=== PATIENT | female | born 1980 | race Caucasian/White ===

== ENCOUNTER 2016-09-01 07:32 | Emergency (ER) | payer BC ==
[~2016-09-01] VITALS: Ht 162.6 cm; Wt 96.6 kg
[~2016-09-01 07:32] MED LIST: PHENTERMINE HCL30 MG PO; PROZAC20 MG PO
[2016-09-01] MEDS ORDERED: LEVO-T125 MCG PO (08:21)
[2016-09-01] MEDS ORDERED: HYDROCHLOROTH12.5 M3 PO (08:22)
[2016-09-01] MEDS ORDERED: ZYRTEC10 M3 PO (08:22)
[2016-09-01 09:44] VITALS: BP 130/89
== END 2016-09-01 09:44 | disposition home or self-care (01) ==
LOC: EME 07:32
DX: S83.91XA Sprain of unspecified site of right knee, initial encounter (principal); W17.89XA Other fall from one level to another, initial encounter; Z88.6 Allergy status to analgesic agent
CPT/HCPCS: 73564; 99281; 99283

== ENCOUNTER 2016-09-05 10:28 | Emergency (ER) | payer BC ==
[~2016-09-05] VITALS: Ht 162.6 cm; Wt 97.6 kg
[~2016-09-05 10:28] MED LIST changes: +HYDROCHLOROTH12.5 M3 PO; +LEVO-T125 MCG PO; +ZYRTEC10 M3 PO
[2016-09-05] MEDS ORDERED: DICLOFENAC SODI50 MG PO (10:48)
[2016-09-05 14:05] VITALS: BP 118/58
== END 2016-09-05 14:06 | disposition home or self-care (01) ==
LOC: EME 10:28
DX: I80.01 Phlebitis and thrombophlebitis of superficial vessels of right lower extremity (principal); E03.9 Hypothyroidism, unspecified
CPT/HCPCS: 93971; 99281; 99283